=== PATIENT | female | born 1970 | race Caucasian/White ===

== ENCOUNTER 2017-12-02 18:48 | Emergency (ER) | payer OTHER ==
[2017-12-02] MEDS ORDERED: ONDANSETRON 4 MG TAB.RAPDIS PO ONE (19:37)
[2017-12-02] MEDS ORDERED: MAG HYDROX/AL HYDROX/SIMETH SUSP 30 ML UDCUP PO ONE (19:37)
[2017-12-02] MEDS ORDERED: LIDOCAINE 2% VISCOUS SOLN 20 ML UDCUP PO ONE (19:37)
[2017-12-02] MEDS ORDERED: METOCLOPRAMIDE HCL ORAL SOLN 10 MG/10 ML UDCUP PO ONE (19:37)
--- NOTE | 2017-12-02 19:38 | ER Document Report ---
ED Medical Screen (RME) - General Chief Complaint: Nausea/Vomiting Stated Complaint: VOMITING/ABDOMINAL PAIN Time Seen by Provider: 12/02/17 19:31 Mode of Arrival: Ambulatory Information source: Patient, Relative Notes: 47-year-old female presents with complaint of nausea, vomiting and abdominal pain. Patient states nausea started 2 days prior to arrival. She states abdominal pain and vomiting started today. Patient states that she has had multiple episodes of nonbloody nonbilious emesis. Her abdominal pain is diffusely located, described as a burning pain that intermittently intensifies causing her to double over in pain. Patient states the pain is relieved when she crawls up in a ball. Patient denies prior similar symptoms. She denies sick contacts, recent antibiotic use or recent travel. She denies any abdominal surgeries. I have greeted and performed a rapid initial assessment of this patient. A comprehensive ED assessment and evaluation of the patient including analysis of labs and imaging ( if obtained) and completion of medical decision making will be conducted by an additional ED provider. PHYSICAL EXAMINATION: GENERAL: Well-appearing, well-nourished and in no acute distress. HEAD: Atraumatic, normocephalic. EYES: Pupils equal round extraocular movements intact, conjunctiva are normal. ENT: Nares patent NECK: Normal range of motion LUNGS: No respiratory distress Musculoskeletal: Normal range of motion NEUROLOGICAL: Normal speech, normal gait. PSYCH: Normal mood, normal affect. SKIN: Warm, Dry, normal turgor, no rashes or lesions noted. TRAVEL OUTSIDE OF THE [place] IN LAST 30 DAYS: No - Related Data Allergies/Adverse Reactions: No Known Allergies Allergy (Unverified 12/02/17 18:51) Past Medical History - Social History Frequency of alcohol use: Rare Renal/ Medical History: Denies: Hx Peritoneal Dialysis Physical Exam - Vital signs Vitals: Temp Pulse Resp BP Pulse Ox 99.0 F 126 H 20 122/73 97 12/02/17 18:54 12/02/17 18:54 12/02/17 18:54 12/02/17 18:54 12/02/17 18:54 Course - Vital Signs Vital signs: Temp Pulse Resp BP Pulse Ox 99.0 F 126 H 20 122/73 97 12/02/17 18:54 12/02/17 18:54 12/02/17 18:54 12/02/17 18:54 12/02/17 18:54 Doctor's Discharge - Discharge Referrals: GILBERT LAINEZ MD [Primary Care Provider] - Follow up as needed
[2017-12-02 20:14] LABS: HEMATOCRIT 47.8 % (36.0-47.0); HEMOGLOBIN 16.5 g/dL (12.0-15.5); MEAN CORPUSCULAR HEMOGLOBIN 31.7 pg (27.0-33.4); MEAN CORPUSCULAR HGB CONC 34.5 g/dL (32.0-36.0); MEAN CORPUSCULAR VOLUME 92 fl (80-97); PLATELET COUNT 206 10^3/uL (150-450); RED BLOOD COUNT 5.21 10^6/uL (3.72-5.28); RED CELL DISTRIBUTION WIDTH 13.5 % (11.5-14.0); WHITE BLOOD COUNT 10.6 10^3/uL (4.0-10.5)
[2017-12-02 20:32] LABS: ABSOLUTE LYMPHOCYTES# (MANUAL) 0.2 10^3/uL (0.5-4.7); ABSOLUTE MONOCYTES # (MANUAL) 0.4 10^3/uL (0.1-1.4); BAND NEUTROPHILS % (MANUAL) 2 % (3-5); BASOPHILS % (MANUAL) 0 % (0-2); EOSINOPHILS % (MANUAL) 0 % (0-6); LYMPHOCYTES % (MANUAL) 2 % (13-45); MONOCYTES % (MANUAL) 4 % (3-13); SEGMENTED NEUTROPHILS % (MAN) 92 % (42-78); TOTAL CELLS COUNTED 100
[2017-12-02 20:33] LABS: ALANINE AMINOTRANSFERASE 25 U/L (9-52); ALBUMIN 4.6 g/dL (3.5-5.0); ALKALINE PHOSPHATASE 62 U/L (38-126); ANION GAP 11 (5-19); ASPARTATE AMINO TRANSFERASE 22 U/L (14-36); BILIRUBIN,DIRECT 0.3 mg/dL (0.0-0.4); BILIRUBIN,TOTAL 0.7 mg/dL (0.2-1.3); BLOOD UREA NITROGEN 19 mg/dL (7-20); CALCIUM 9.2 mg/dL (8.4-10.2); CARBON DIOXIDE 26 mmol/L (22-30); CHLORIDE 105 mmol/L (98-107); GLUCOSE 114 mg/dL (75-110); LIPASE 35.9 U/L (23-300); POTASSIUM 4.4 mmol/L (3.6-5.0); SODIUM 141.8 mmol/L (137-145); TOTAL PROTEIN 7.7 g/dL (6.3-8.2)
[2017-12-02 20:35] LABS: PLATELET COMMENT ADEQUATE; RBC MORPHOLOGY COMMENT NORMO-CYTIC/CHROMIC; TOXIC GRANULATION SLIGHT; TOXIC VACUOLATION PRESENT
[2017-12-02] MEDS ORDERED: RINGERS SOLUTION,LACTATED 1,000 ML IV ONE ×2 (21:01→21:02)
[2017-12-02 22:17] LABS: AMORPHOUS SEDIMENT,URINE 4+ /HPF; APPEARANCE,URINE TURBID; BILIRUBIN,URINE NEGATIVE (NEGATIVE); COLOR,URINE YELLOW; GLUCOSE, URINE NEGATIVE (NEGATIVE); KETONES,URINE 20 mg/dL (NEGATIVE); LEUKOCYTE ESTERASE,URINE LARGE (NEGATIVE); NITRITE,URINE NEGATIVE (NEGATIVE); PROTEIN,URINE NEGATIVE (NEGATIVE); URINE SPECIFIC GRAVITY 1.031
--- NOTE | 2017-12-02 23:32 | RADIOLOGY REPORT (SQ) ---
EXAM DESCRIPTION: CT ABDOMEN PELVIS WITH IV CONTRAST COMPLETED DATE/TME: 12/02/2017 00:00 CLINICAL HISTORY: Right lower quadrant abdominal pain COMPARISON: None Available. TECHNIQUE: CT of the abdomen and pelvis performed following IV administration of 68 mL of Isovue 370. Delayed images obtained. DLP: 712.04 mGycm FINDINGS: Lung Bases: The visualized lung bases are clear. Breast implants. Bones: No destructive bone lesions identified. Abdomen: Liver: The liver has normal size and density. No intrahepatic mass or biliary dilatation. Gallbladder: No calcified gallstones. Spleen, Pancreas, and Adrenal Glands: The spleen, pancreas, and adrenal glands are unremarkable. Kidneys: The kidneys have normal size and contour without evidence of solid mass or hydronephrosis. Vasculature: The aorta and IVC have normal caliber and position. The portal vein is patent. The proximal visceral and renal arteries are patent. Stomach: The stomach and duodenum have normal course. Other: No free intraperitoneal air. No definite lymphadenopathy. Pelvis: Bladder: Urinary bladder is unremarkable. Bowel: No dilated loops of large or small bowel. Appendix: Normal appendix. Pelvis: IUD present. Small amount of free pelvic fluid. IMPRESSION: 1. No acute inflammatory or obstructive process identified. 2. Small amount of free pelvic fluid may be physiologic. 3. IUD in the uterus. This exam was performed according to our departmental dose-optimization program, which includes automated exposure control, adjustment of the mA and/or kV according to patient size and/or use of iterative reconstruction technique.
--- NOTE | 2017-12-02 23:52 | ER Document Report ---
ED General - General Chief Complaint: Nausea/Vomiting Stated Complaint: VOMITING/ABDOMINAL PAIN Time Seen by Provider: 12/02/17 19:31 Mode of Arrival: Ambulatory Information source: Patient Notes: This is a 47-year-old female who presents to the emergency room with nausea, intermittent vomiting and crampy abdominal discomfort since (3 days). Patient states that the abdominal discomfort is spasmodic and not constant and comes and goes. She denies any blood in the vomitus. She denies any significant diarrhea. She denies any blood in the stool. TRAVEL OUTSIDE OF THE [place] IN LAST 30 DAYS: No - HPI Onset: Last week Onset/Duration: Gradual Quality of pain: Cramping, Dull Severity: Moderate Pain Level: 2 Associated symptoms: denies: Chest pain, Fever, Shortness of breath Exacerbated by: Denies Relieved by: Denies Similar symptoms previously: No Recently seen / treated by doctor: No - Related Data Allergies/Adverse Reactions: No Known Allergies Allergy (Unverified 12/02/17 18:51) Past Medical History - General Information source: Patient, Relative - Social History Smoking Status: Current Every Day Smoker Cigarette use (# per day): Yes Chew tobacco use (# tins/day): No - Half a pack per day Frequency of alcohol use: None Drug Abuse: None Lives with: Family Family History: None Patient has suicidal ideation: No Patient has homicidal ideation: No - Past Medical History Cardiac Medical History: Reports: Other - "Low blood pressure" Pulmonary Medical History: Reports: None EENT Medical History: Reports: None Neurological Medical History: Reports: Other - Dizziness Endocrine Medical History: Reports: None Renal/ Medical History: Reports: None. Denies: Hx Peritoneal Dialysis Malignancy Medical History: Reports: None Psychiatric Medical History: Reports: None Traumatic Medical History: Reports: None Infectious Medical History: Reports: None Surgical Hx: Negative Review of Systems - Review of Systems Constitutional: denies: Chills, Fever EENT: No symptoms reported Cardiovascular: No symptoms reported Respiratory: No symptoms reported Gastrointestinal: See HPI Genitourinary: No symptoms reported Female Genitourinary: No symptoms reported Musculoskeletal: No symptoms reported Skin: No symptoms reported Hematologic/Lymphatic: No symptoms reported Neurological/Psychological: No symptoms reported Physical Exam - Vital signs Vitals: Temp Pulse Resp BP Pulse Ox 99.0 F 126 H 20 122/73 97 12/02/17 18:54 12/02/17 18:54 12/02/17 18:54 12/02/17 18:54 12/02/17 18:54 Notes: Physical exam: GENERAL: 47-year-old female, alert and oriented 3, appears nauseated and uncomfortable. HEAD: Atraumatic, normocephalic. EYES: Pupils equal round and reactive to light, extraocular movements intact, sclera anicteric, conjunctiva are normal. ENT: TMs normal, nares patent, oropharynx clear without exudates. Moist mucous membranes. NECK: Normal range of motion, supple without obvious mass or JVD. LUNGS: Breath sounds clear to auscultation bilaterally and equal. No wheezes rales or rhonchi. HEART: Regular rate and rhythm without murmurs, rubs or gallops. ABDOMEN: Soft, normoactive bowel sounds. Mild tenderness diffusely without rebound or guarding. No masses appreciated. No Pollard's sign. No McBurney's point tenderness. EXTREMITIES: Normal range of motion, no pitting or edema. No clubbing or cyanosis. NEUROLOGICAL: Cranial nerves II through XII grossly intact. Normal speech, moving all extremities. PSYCH: Normal mood, normal affect. SKIN: Warm, Dry, normal turgor, no rashes or lesions noted. Bedside ultrasound: Gallbladder has normal wall, without stones, no pericholecystic fluid. Normal common bile duct. No hydronephrosis. Course - Re-evaluation Re-evalutation: 12/02/17 23:52 Patient was given IV fluids, antiemetics. CT of the abdomen shows a normal appendix with no acute intra-abdominal pathology. On reassessment, the patient' s discomfort is much improved. She has not been given any pain medicine. Her repeat vital signs are temperature of 99.2, blood pressure 110/47, respiratory rate 24, pulse 80, O2 sat 99% on room air. - Vital Signs Vital signs: Temp Pulse Resp BP Pulse Ox 99.0 F 126 H 20 122/73 97 12/02/17 18:54 12/02/17 18:54 12/02/17 18:54 12/02/17 18:54 12/02/17 18:54 - Laboratory Result Diagrams: 12/02/17 20:00 12/02/17 20:00 Laboratory results interpreted by me: 12/02/17 12/02/17 12/02/17 20:00 20:00 20:50 WBC 10.6 H Hgb 16.5 H Hct 47.8 H Seg Neuts % (Manual) 92 H Band Neutrophils % 2 L Lymphocytes % (Manual) 2 L Abs Neuts (Manual) 10.0 H Abs Lymphs (Manual) 0.2 L Glucose 114 H Urine Ketones 20 H Urine Urobilinogen 2.0 H Ur Leukocyte Esterase LARGE H Discharge - Discharge Clinical Impression: Vomiting with nausea, Abdominal pain Condition: Stable Disposition: HOME, SELF-CARE Additional Instructions: As we discussed, would like you to rest for the next few days. Try and stay hydrated: Drink small amounts of fluids often. Take the Zofran for nausea: 4 mg every 4-6 hours. I did prescribe some Valium for your dizziness: Take as needed. Follow-up with your primary care doctor this week. Return to the emergency room for worsening pain, fever (temperature greater than 100.5) or any concerns or getting worse. Prescriptions: Diazepam [Valium 5 mg Tablet] 5 mg PO QIDP PRN #20 tablet PRN Reason: Ondansetron HCl [Zofran 4 mg Tablet] 1 - 2 tab PO Q4H PRN #10 tablet PRN Reason: Forms: Return to Work Referrals: GILBERT LAINEZ MD [COMMUNITY BASED STAFF] - 12/04/17
[2017-12-03] MEDS ORDERED: ONDANSETRON 4 MG TAB.RAPDIS PO ONE (00:03)
[2017-12-03] MEDS ORDERED: ONDANSETRON ODT 4 MG TAB (6 TAB/ER DISP) PO PRN (00:03)
[2017-12-03 00:35] VITALS: BP 103/68
== END 2017-12-03 00:35 | disposition home or self-care (01) ==
LOC: ER 18:48
DX: R11.2 Nausea with vomiting, unspecified (principal); R10.9 Unspecified abdominal pain; F17.210 Nicotine dependence, cigarettes, uncomplicated; I95.9 Hypotension, unspecified
CPT/HCPCS: 99284; 96360; 36415; 87086; 84702; 83690; 85025; 81025; 80053; 81001; 74177; S0119 ×2; J3490; J7120

== ENCOUNTER 2018-05-22 15:26 | Emergency (ER) | payer OTHER ==
[2018-05-22] MEDS ORDERED: LORAZEPAM INJ 2 MG/1 ML VIAL IV ONE (15:49)
[2018-05-22] MEDS ORDERED: DIPHENHYDRAMINE HCL 50 MG/ML VIAL IV ONE (15:49)
[2018-05-22] MEDS ORDERED: ONDANSETRON 4 MG TAB.RAPDIS PO ONE (16:31)
--- NOTE | 2018-05-22 18:47 | ER Document Report ---
ED General - General Chief Complaint: Nausea Stated Complaint: POSSIBLE ALLERGIC REACTION Time Seen by Provider: 05/22/18 15:45 Mode of Arrival: Ambulatory Information source: Patient Notes: History of Present Illness Chief Complaint: [Allergic Reaction] [48 years old female presents today with an acute reaction to Cipro, she took it first time started having shaking sensation abdominal discomfort nausea. No difficulty in breathing no rash. Happened just prior to arrival ] History obtained from [patient] Symptoms began: [immediately prior to arrival] Onset: [gradual] Timing: [constant] Quality: [ Unknown] Location: [Generalized] Intensity: [moderate] Radiation:[ none] Migration: [none] Aggravating factors: [none] Relieving factors:[ none] Denies change in voice Denies inability to swallow Denies swelling of tongue or mouth Denies sensation of throat closing Able to tolerate PO Review of Systems: All other systems negative as reviewed. CONSTITUTIONAL No Fever. EYES No eye pain. ENT No sore throat CARDIOVASCULAR No chest pain. RESPIRATORY No SOB. GI No abdominal pain, no vomiting, no diarrhea. GENITOURINARY No dysuria. SKIN No rash. NEUROLOGIC No headache. MUSCULOSKELETAL No back pain. Physical Exam CONSTITUTIONAL Vital signs reviewed, Patient has normal respiratory rate, Well appearing, Patient appears uncomfortable, normal stature. Having generalized shaking sensation and nauseous and vomited once. HEAD [ ]Atraumatic, Normocephalic. EYES Eyes are normal to inspection. ENT Ears normal to inspection, Nose examination normal.Oropharynx examination [ normal]- [no] mass, [no] swelling, [no] deviation. Tongue- [normal] NECK No jugular venous distention. RESPIRATORY CHEST [ ] Breath sounds normal, No respiratory distress. CARDIOVASCULAR RRR, No murmurs, Normal S1 S2, No rub, No gallop. ABDOMEN Abdomen is nontender, No masses, Bowel sounds normal, No distension, No peritoneal signs. BACK Normal inspection. UPPER EXTREMITY Inspection normal. LOWER EXTREMITY Inspection normal. NEURO No focal motor deficits. SKIN [ ] Skin is warm, Skin is dry, Skin is normal color. PSYCHIATRIC Normal affect. TRAVEL OUTSIDE OF THE [place] IN LAST 30 DAYS: No - Related Data Allergies/Adverse Reactions: No Known Allergies Allergy (Verified 05/22/18 15:29) Past Medical History - General Information source: Patient, POA - Power of [employer] - Social History Smoking Status: Current Every Day Smoker Frequency of alcohol use: None Drug Abuse: None Lives with: Family Family History: None, Reviewed & Not Pertinent Patient has suicidal ideation: No Patient has homicidal ideation: No Renal/ Medical History: Denies: Hx Peritoneal Dialysis Past Surgical History: Reports: Hx Breast Surgery Review of Systems - Review of Systems Notes: Dictated Physical Exam - Vital signs Vitals: Temp Pulse Resp BP Pulse Ox 98.4 F 144 H 20 128/75 H 100 05/22/18 15:40 05/22/18 15:40 05/22/18 15:40 05/22/18 15:40 05/22/18 15:40 - Notes Notes: Dictated Course - Re-evaluation Re-evalutation: 05/22/18 18:45 Given Ativan and Benadryl - Vital Signs Vital signs: Temp Pulse Resp BP Pulse Ox 98.4 F 144 H 20 128/75 H 100 05/22/18 15:40 05/22/18 15:40 05/22/18 15:40 05/22/18 15:40 05/22/18 15:40 Discharge - Discharge Clinical Impression: Allergy to sulfa drugs Acute allergic reaction Qualifiers: Encounter type: initial encounter Qualified Code(s): T78.40XA - Allergy, unspecified, initial encounter Condition: Fair Disposition: HOME, SELF-CARE Instructions: Acute Allergic Reaction ([facility]) Prescriptions: Ciprofloxacin HCl [Cipro 500 mg Tablet] 500 mg PO BID #14 tablet Referrals: SHAUNA PERKINS MD [Primary Care Provider] - Follow up as needed
[2018-05-22 19:10] VITALS: BP 91/46
== END 2018-05-22 19:11 | disposition home or self-care (01) ==
LOC: ER 15:26
DX: R11.0 Nausea (principal); T36.8X5A Adverse effect of other systemic antibiotics, initial encounter; F17.200 Nicotine dependence, unspecified, uncomplicated
CPT/HCPCS: 99283; 96374; 96375; J1200; S0119; J2060

== ENCOUNTER → 2019-11-26 | Outpatient (CLI) | payer OTHER ==
--- NOTE | 2019-11-27 16:20 | WOMENS IMAGING REPORT ---
EXAM DESCRIPTION: 3D SCREENING MAMMO BILAT IMAGES COMPLETED DATE/TIME: 11/26/2019 11:09 am REASON FOR STUDY: Z12.31 ENCOUNTER FOR SCREENING MAMMOGRAM FOR MALIGNANT NEOPLASM OF BREAST Z12.31 ENCNTR SCREEN MAMMOGRAM FOR MALIGNANT NEOPLASM OF TATUM COMPARISON: 2017 outside facility EXAM PARAMETERS: Standard craniocaudal and mediolateral oblique views of each breast recorded using digital acquisition and breast tomosynthesis. Additional "push-back craniocaudal and mediolateral ob lique images acquired. Read with the assistance of CAD. [facility] - R2 Shareholder Version 9.2 LIMITATIONS: None. FINDINGS: IMPLANTS: Bilateral subglandular implants. Findings present which are benign by mammographic criteria. No suspicious masses, calcifications or a rchitectural distortion. Benign mammographic findings may include one or more of the following: Smooth masses, popcorn/rim/co arse calcifications, asymmetries, post-procedure changes, and lesions with long-standing stability. IMPRESSION: BENIGN MAMMOGRAPHIC FINDINGS. BIRADS 2 BREAST DENSITY: b. There are scattered areas of fibroglandular density. BIRAD: ASSESSMENT: 2 BENIGN FINDING(S) RECOMMENDATION: ROUTINE SCREENING COMMENT: The patient has been notified of the results by letter per MQSA requirements. Additional no tification policies are in place for contacting patient with suspicious or incomplete findings. Quality ID #[id number]: The [employer] recommends an annual screening mammogram for women aged 40 years or over. This facility utilizes a reminder system to ensure that all patients receive reminder letters, and/or direct phone calls for appointments. This includes reminders for routine scr eening mammograms, diagnostic mammograms, or other Breast Imaging Interventions when appropriate. Th is patient will be placed in the appropriate reminder system. TECHNICAL DOCUMENTATION: FINDING NUMBER: (1) ASSESSMENT: (1) JOB ID: [id number] 2010 [employer]- All Rights Reserved Reading location - IP/workstation name: [email or web address]
== END ==
LOC: WI 10:32
PROVIDERS: ATTEND Student in an Organized Health Care Education/Training Program
DX: Z12.31 Encounter for screening mammogram for malignant neoplasm of breast (principal); Z98.82 Breast implant status
CPT/HCPCS: 77063; 77067